=== PATIENT | female | born 1945 | race Caucasian/White ===

== ENCOUNTER 2016-06-01 11:39 | Emergency (ER) | payer OTHER ==
[~2016-06-01] VITALS: Ht 154.9 cm; Wt 68.9 kg
[~2016-06-01 11:39] MED LIST: VAS10 PO
[2016-06-01 11:49] VITALS: BP 148/78
--- NOTE | 2016-06-01 13:10 | NUR ---
Patient to bed 08.
--- NOTE | 2016-06-01 13:12 | NUR ---
Dr. Leone evaluating patient at bedside.
--- NOTE | 2016-06-01 13:12 | NUR ---
71/F BIB TO ED C/O COUGH X5 DAYS WITH CHEST PAIN AND CONGESTION.
[2016-06-01] MEDS ORDERED: ACETAMIN/CODEINE 120/12MG-5ML 5 ML UDC PO ONE (13:25)
--- NOTE | 2016-06-01 13:45 | NUR ---
XR NEGATIVE. MED GIVEN PER APR. PT SOUMYA WELL. SWABBED NOSTRILS FOR FLU TEST.
[2016-06-01 15:04] VITALS: BP 144/80
--- NOTE | 2016-06-01 15:04 | NUR ---
Patient discharged with v/s stable. Written and verbal after care instructions given and explained. Patient verbalized understanding. Ambulatory with steady gait. All questions addressed prior to discharge. Advised to follow up with PMD.
== END 2016-06-01 15:04 | disposition home or self-care (01) ==
LOC: MED 11:39
DX: B34.9 Viral infection, unspecified (principal); J02.8 Acute pharyngitis due to other specified organisms; B97.89 Other viral agents as the cause of diseases classified elsewhere; E11.9 Type 2 diabetes mellitus without complications; I10 Essential (primary) hypertension
CPT/HCPCS: 36415; 71010; 87804; 99284

== ENCOUNTER 2016-07-07 17:03 | Inpatient (IN) | payer OTHER ==
[~2016-07-07] VITALS: Ht 157.5 cm; Wt 68.9 kg
[~2016-07-07 17:03] MED LIST changes: +CIPRO500 MG PO; -VAS10 PO; +VASOTEC10 MG PO
[2016-07-07 17:09] VITALS: BP 143/68
--- NOTE | 2016-07-07 17:21 | NUR ---
Patient ambulated to bed 05.
[2016-07-07] MEDS ORDERED: ONDANSETRON 4 MG/2 ML VIAL IVP ONE (17:25)
[2016-07-07] MEDS ORDERED: HYDROmorphone 1 MG/ML AMP IVP ONE (17:25)
[2016-07-07] MEDS ORDERED: NACL 0.9% 500 ML IV ONE (17:25)
--- NOTE | 2016-07-07 17:27 | NUR ---
Dr. Leone evaluating patient at bedside.
--- NOTE | 2016-07-07 17:55 | NUR ---
PT STATES EPIGASTRIC PAIN FOR 2 TWO DAYS . DENIES V/D; SKIN IS PINK/WARM/DRY; AAOX4 WITH EVEN AND STEADY GAIT; LUNGS CLEAR BL; HR EVEN AND REGULAR; PT DENIES ANY FEVER, CP, SOB, OR COUGH AT THIS TIME; PATIENT STATES PAIN OF 5/10 AT THIS TIME; VSS; PATIENT POSITIONED FOR COMFORT; HOB ELEVATED; BEDRAILS UP X2; BED DOWN. ER MD MADE AWARE OF PT STATUS.PT'S TWO DAUGHTERS AT BEDSIDE.
--- NOTE | 2016-07-07 18:39 | NUR ---
Patient going to CT via wheelchair per tech.
[2016-07-07] MEDS ORDERED: cefTRIAXone 1,000 MG VIAL ONE (19:17)
--- NOTE | 2016-07-07 19:25 | NUR ---
REPORT GIVEN TO DOROTA Morales FOR CONTINUTY OF CARE.
[2016-07-07] MEDS ORDERED: INSULIN LISPRO SLIDING SCALE 100 UNITS/ML VIAL SUBQ PRN (20:05)
[2016-07-07] MEDS ORDERED: MORPHINE SULFATE 2 MG/ML SYR IVP PRN (20:05)
[2016-07-07] MEDS ORDERED: ONDANSETRON 4 MG/2 ML VIAL IVP PRN (20:05)
[2016-07-07] MEDS ORDERED: ACETAMINOPHEN 325 MG TAB PO PRN (20:05)
[2016-07-07] MEDS ORDERED: ASPIRIN 81 MG TAB.CHEW PO ONE (20:05)
[2016-07-07] MEDS ORDERED: NACL 0.9% 1,000 ML IV ONE (20:10)
[2016-07-07] MEDS ORDERED: PROTONIX40 MG PO (21:22)
[2016-07-07] MEDS ORDERED: METFORMIN HCL500 MG PO (21:22)
[2016-07-07] MEDS ORDERED: ORETIC25 MG PO (21:22)
[2016-07-07] MEDS ORDERED: OXYBUTYNIN CHLOR5 M1 PO (21:22)
--- NOTE | 2016-07-07 21:22 | NUR ---
Patient will be admitted to care of DR ANDRADE. Admited to TELE . Will go to room 115. Belongings list completed. Report to TAHMINA RAYA.
--- NOTE | 2016-07-07 21:40 | NUR ---
PATIENT WAS ADMITTED TO THE UNIT FROM ED, PATIENT ARRIVED VIA GURNEY, ABLE TO AMBULATE TO BED WITH NO ASSISTANCE. PATIENT IS AAOX4 ON ROOM AIR NO SOB OR SIGN OF DISTRESS AT THIS TIME, PATIENT CONNECTED TO TELE, SKIN CHECK INTACT, IV TO RAC PATENT AND INTACT. PATIENT DENIES PAIN AT THIS TIME. DISCUSSED PLAN OF CARE WITH PATIENT, PATIENT VERBALIZED UNDERSTANDING, ORIENTED PATIENT TO ROOM AND CALL LIGHT. CALL LIGHT WITHIN REACH. SAFETY MEASURES CHECKED, WILL CONTINUE TO MONITOR. VITAL SIGNS STABLE.
[2016-07-07] MEDS: BLOOD GLUCOSE MONITORING 1 DEV DEV FS SCH (21:52)
[2016-07-07] MEDS ORDERED: PNEUMOCOCCAL VACCINE 23 MCG/0.5 ML VIAL IMVAC PRN (22:35)
[2016-07-08] VITALS: BP 101/52
--- NOTE | 2016-07-08 00:22 | NUR ---
VITAL SIGNS STABLE, NO SOB OR SIGN OF DISTRESS AT THIS TIME, CALL LIGHT WITHIN REACH. WILL CONTINUE TO MONITOR
--- NOTE | 2016-07-08 02:40 | NUR ---
IV IN RIGHT AC INFILTRATED, STARTED NEW IV TO LEFT HAND 22G PATENT AND INTACT, PATIENT TOLERATED WELL. CALL LIGHT WITHIN REACH. WILL CONTINUE TO MONITOR.
[2016-07-08 04:00] VITALS: BP 115/64
--- NOTE | 2016-07-08 04:12 | NUR ---
VITAL SIGNS STABLE, NO SOB OR SIGN OF DISTRESS AT THIS TIME, CALL LIGHT WITHIN REACH. WILL CONTINUE TO MONITOR.
[2016-07-08] MEDS: BLOOD GLUCOSE MONITORING 1 DEV DEV FS SCH ×2 (06:42→12:18)
--- NOTE | 2016-07-08 07:21 | NUR ---
RECEIVED REPORT FROM NIGHT NURSE. PT IS AAOX4 MACEDONIAN SPEAKING, ON ROOM AIR, IV TO LEFT AC INFUSING WELL , SKIN INTACT Addendum: 07/08/16 at 0752 by Ana Maria Quintero RN PT SATES NO CHEST PAIN OR SOB AT THIS TIME.INITIAL ASSESSMENT COMPLETED. REVIEWED PLAN OF CARE WITH PT, PT VERBALIZED UNDERSTANDING. ALL SAFETY PRECAUTION MET. CALL LIGHT WITHIN REACH. WILL CONTINUE TO MONITOR.
--- NOTE | 2016-07-08 07:21 | NUR ---
ENDORSED PATIENT TO DAY RN AT BEDSIDE, PATIENT IN STABLE CONDITION
[2016-07-08 08:00] VITALS: BP 116/72
[2016-07-08] MEDS ORDERED: ENOXAPARIN 30 MG/0.3 ML SYR SUBQ SCH (09:00)
[2016-07-08] MEDS ORDERED: ASPIRIN 81 MG TAB.CHEW PO SCH (09:00)
--- NOTE | 2016-07-08 09:46 | NUR ---
DUE MEDICATIONS GIVEN, AT BEDSIDE, ALL NEEDS MET. CALL LIGHT WITHIN REACH. WILL CONTINUE TO MONITOR.
[2016-07-08] MEDS ORDERED: LEVAQUIN500 M1 PO (10:52)
--- NOTE | 2016-07-08 11:45 | NUR ---
PT CURRENTLY VISITING WITH FAMILY MEMBERS. ALL NEEDS MET. CALL LIGHT WITHIN REACH. WILL CONTINUE TO MONITOR.
[2016-07-08 12:00] VITALS: BP 114/71
--- NOTE | 2016-07-08 14:00 | NUR ---
PT SIGNED ALL DISCHARGE PAPERWORK, FOLLOW UP INFORMATION GIVEN , PRESCRIPTION AND EDUCATION GIVEN. PT VERBALIZED UNDERSTANDING. IV REMOVED TIP INTACT. IN TO CLINICAL SUPERVISOR PY.
--- NOTE | 2016-07-08 14:15 | NUR ---
PT WAS WALKED OUT TO FRONT LOBBY IN STABLE CONDITION.
--- NOTE | 2016-07-10 08:06 | NUR ---
RETRO ER REPORT, H&P AND DISCHARGE SUMMARY FAXED TO [facility] [phone] PHONE MARIO [phone]
== END 2016-07-08 14:05 | disposition home or self-care (01) | DRG 422 ==
LOC: MED 17:03 → MTU 20:08
PROVIDERS: ADMIT Hospitalist; ATTEND Hospitalist
DX: E87.1 Hypo-osmolality and hyponatremia (principal); E86.0 Dehydration; N39.0 Urinary tract infection, site not specified; I15.2 Hypertension secondary to endocrine disorders; I10 Essential (primary) hypertension; E78.00 Pure hypercholesterolemia, unspecified; E11.9 Type 2 diabetes mellitus without complications; J45.909 Unspecified asthma, uncomplicated

== ENCOUNTER 2017-10-23 21:46 | Emergency (ER) | payer OTHER ==
[~2017-10-23] VITALS: Ht 157.5 cm; Wt 65.8 kg
[~2017-10-23 21:46] MED LIST changes: -CIPRO500 MG PO; +LEVO500T2 PO; +METF500T6 PO; +OXYB5TAB PO; +PANT40EC PO; +VAS10 PO; -VASOTEC10 MG PO
[2017-10-23 22:06] VITALS: BP 135/88
--- NOTE | 2017-10-23 22:10 | NUR ---
72 Y/O F PRESENTS TO THE ED W/C/O PT FELL AT HOME INJURING RIGHT 5TH TOE. REDNESS AND EDEMA PRESENT. NO OPEN AREAS. 8/10 PAIN. PT DENIES N/V/D; SKIN IS INTACT, PINK/WARM/DRY; AAOX4, PERRL, WITH EVEN AND STEADY GAIT; LUNGS CLEAR BL, BREATHING UNLABORED; HR EVEN AND REGULAR, BL PERIPHERAL PULSES PRESENT; BS ACTIVE X4, NO TENDERNESS TO PALPATION, NO HEPATOSPLENOMEGALLY PALPATED, RESONANT TO PERCUSSION; PT DENIES ANY FEVER, CP, SOB, OR COUGH AT THIS TIME; PT STATES 8/10 PAIN AT THIS TIME; VSS; PATIENT POSITIONED FOR COMFORT; HOB ELEVATED; BEDRAILS UP X2; BED DOWN.
--- NOTE | 2017-10-23 22:11 | NUR ---
PT AMBULATED TO BED #4 WITH VSS. ACCOMPANIED BY DAUGHTER.
--- NOTE | 2017-10-23 22:34 | NUR ---
Dr. Porter evaluating patient at bedside.
--- NOTE | 2017-10-23 23:03 | NUR ---
is technician at bedside.
--- NOTE | 2017-10-23 23:30 | NUR ---
PT RESTING COMFORTABLY IN BED. NO S/S OF DISTRESS NOTED
[2017-10-24 00:25] VITALS: BP 136/77
== END 2017-10-24 00:25 | disposition home or self-care (01) ==
LOC: MED 21:46
DX: S90.121A Contusion of right lesser toe(s) without damage to nail, initial encounter (principal); E11.9 Type 2 diabetes mellitus without complications; I10 Essential (primary) hypertension; Z88.8 Allergy status to other drugs, medicaments and biological substances; W18.39XA Other fall on same level, initial encounter; Y93.89 Activity, other specified; Y92.89 Other specified places as the place of occurrence of the external cause; Y99.8 Other external cause status
CPT/HCPCS: 73660; 99284; Q0092

== ENCOUNTER 2018-07-05 22:14 | Inpatient (IN) | payer OTHER ==
[~2018-07-05] VITALS: Ht 165.1 cm; Wt 65.8 kg
[~2018-07-05 22:14] MED LIST changes: +ENAL-197 PO; +METF-988 PO; -METF500T6 PO; -VAS10 PO
[2018-07-05 22:20] VITALS: BP 125/83
--- NOTE | 2018-07-05 22:30 | NUR ---
73 YO F BIB SON PRESENTS TO ED C/O CHEST PAIN. PT REPORTS 7/10 SHARP PAIN TO THE STERNAL REGION THAT RADIATES FROM HER THROAT. PT ALSO REPORTS INCREASE IN PAIN WHILE COUGHING AND DEEP BREATHING AND CAN "HEAR A WHISTLE" DURING INSPIRATION. PT DENIES SOB, N/V, LIGHT HEADEDNESS OR DIZZINESS. PT HAS HAD A DRY, PRODUCTIVE COUGH WITH YELLOW SPUTUM X 3 DAYS. -- PT IS AWAKE, ALERT, COOPERATIVE, BEHAVIOR APPROPRIATE. -- SKIN PINK, DRY, WARM. NO DIAPHORESIS NOTED. -- INSPIRATORY WHEEZING AUSCULTATED THROUGHOUT LUNG DOTY. SPO2: 94%. -- VSS. NO DISTRESS NOTED AT THIS TIME. PMH-- HTN, DM, HYPERLIPIDEMIA
--- NOTE | 2018-07-05 22:48 | NUR ---
DR. WALTERS EVALUATING PT BEDSIDE
--- NOTE | 2018-07-05 23:00 | NUR ---
PT PLACED ON FI02 AT 2 LPM VIA NC FOR SP02 <94% (92% ON RA.) NEW SP02 97% ON 2 LPM.
[2018-07-05] MEDS ORDERED: LEVOFLOXACIN 750 MG/D5W PREMIX 150 ML IV ONE (23:05)
[2018-07-05] MEDS ORDERED: MAG SULF 2000 MG/WATER PREMIX 50 ML IV ONE (23:05)
[2018-07-05] MEDS ORDERED: IPRATROPIUM 0.02% 0.5 MG/2.5 ML NEBU INH ONE (23:05)
[2018-07-05] MEDS ORDERED: methylPREDNISolone SS 125 MG in WATER STERILE 2 ML IV ONE ×4 (23:05)
[2018-07-05] MEDS ORDERED: AZITHROMYCIN 500 MG in DEXTROSE 5% 250 ML IV ONE (23:10)
--- NOTE | 2018-07-05 23:11 | NUR ---
LAB AT BEDSIDE.
--- NOTE | 2018-07-05 23:23 | NUR ---
XRAY AT BEDSIDE.
[2018-07-05] MEDS ORDERED: AZITHROMYCIN 500 MG INJ VIAL IV ONE (23:24)
--- NOTE | 2018-07-05 23:30 | NUR ---
RT AT BEDSIDE. BREATHING TX IN PROGRESS.
[2018-07-05 23:48] LABS: BASOPHILS % (AUTO) 0.9 % (0.0-2.0); EOSINOPHILS # (AUTO) 0.1 K/uL (0-0.4); EOSINOPHILS % (AUTO) 2.4 % (0.0-4.0); HEMATOCRIT 40.7 % (36-48); HEMOGLOBIN 13.8 g/dL (12.0-16.0); LYMPHOCYTES # (AUTO) 1.7 K/uL (2.5-16.5); MEAN CORPUSCULAR HEMOGLOBIN 31 pg (27-31); MEAN CORPUSCULAR HGB CONC 34 g/dL (33-37); MEAN CORPUSCULAR VOLUME 90.5 fL (80-94); MONOCYTES # (AUTO) 0.8 K/uL (0.8-1.0); NEUTROPHILS # (AUTO) 2.4 K/uL (1.8-7.7); NEUTROPHILS % (AUTO) 47.6 % (42.2-75.2); PLATELET COUNT (AUTO) 304 K/uL (140-450); RED CELL DISTRIBUTION WIDTH 12.9 % (11.6-13.7); WHITE BLOOD COUNT (AUTO) 5.1 K/uL (4.8-10.8)
[2018-07-05] MEDS ORDERED: ORE25 PO (23:58)
[2018-07-05] MEDS ORDERED: SIMV40TA1 PO (23:58)
[2018-07-05] MEDS ORDERED: LOSA50TA66 PO (23:58)
--- NOTE | 2018-07-06 | NUR ---
PT REPORTS BREATHING TX AND MEDICATIONS IMPROVED DISCOMFORT WHILE BREATHING, 4/10. LUNG SOUNDS IMPROVED. CLEAR TO AUSCULTATION.
[2018-07-06 00:03] LABS: ANION GAP 10.5 (8-16); CHLORIDE 92 mmol/L (98-107); CREATININE 0.9 mg/dL (0.6-1.3); GLUCOSE 126 mg/dL (74-106); POTASSIUM 3.5 mmol/L (3.5-5.1); SODIUM SERUM 128 mmol/L (136-145); UREA NITROGEN, BLOOD 13 mg/dL (7-18)
[2018-07-06 00:09] LABS: ALBUMIN 3.2 g/dL (3.4-5.0); ASPARTATE AMINOTRANSFERASE 20 U/L (15-37); MONOCYTES % (AUTO) 16.1 % (1.7-9.3); TOTAL BILIRUBIN 0.3 mg/dL (0.0-1.0)
[2018-07-06 00:29] LABS: APPEARANCE,URINE HAZY (CLEAR); BILIRUBIN,URINE NEGATIVE (NEGATIVE); BLOOD, URINE TRACE-I (NEGATIVE); COLOR,URINE YELLOW (YELLOW); LEUKOCYTE ESTERASE ,URINE TRACE (NEGATIVE); NITRITE, URINE POSITIVE (NEGATIVE); UGLUCOSE NEGATIVE (NEGATIVE)
[2018-07-06 00:47] LABS: RBC,URINE 0-5 /HPF (0-5); WBC,URINE 0-5 /HPF (0-5)
[2018-07-06 01:00] VITALS: BP 130/73
--- NOTE | 2018-07-06 01:00 | NUR ---
RECEIVED BEDSIDE REPORT FROM FELICITAS RAYA. PATIENT SLEEPING RESPIRATION EVEN UNLABORED ON ROOM AIR. NO DISTRESS NOTED. WILL CONTINUE TO MONITOR. Addendum: 07/06/18 at 0436 by Yumiko Jolly RN WRONG ENTRY
--- NOTE | 2018-07-06 01:00 | NUR ---
RECEIVED REPORT FROM ED NURSE. PATIENT AWAKE, ALERT, AND COOPERATIVE. BAHRAINI SPEAKER. RESPIRATION EVEN UNLABORED ON 2L NC. NO DISTRESS NOTED. SKIN IS WARM AND DRY. IV PATENT AND INTACT. SON IS AT THE BEDSIDE AND PROVIDED PMH OF THE PATIENT. BOWEL SOUNDS PRESENT IN ALL QUADRANT. LAST BM 07/05/18. PATIENT IS AMBULATORY. PATIENT IS ON CONTACT PRECAUTION DUE TO HX MDRO URINE. PLAN OF CARE WAS DISCUSSED. ALL SAFETY MEASURES IN PLACE. BED IS AT LOW POSITION. CALL LIGHT WITHIN REACH. WILL CONTINUE TO MONITOR.
--- NOTE | 2018-07-06 01:09 | NUR ---
Patient will be admitted to care of Dr. Lange. Admited to TELE. Will go to room 123B. Belongings list completed. Report to DOROTA Calderon.
[2018-07-06] MEDS ORDERED: ACETAMINOPHEN 325 MG TAB PO PRN (02:00)
[2018-07-06] MEDS ORDERED: ONDANSETRON 4 MG/2 ML VIAL IVP PRN (02:00)
[2018-07-06] MEDS ORDERED: KETOROLAC 30 MG/ML VIAL IVP PRN (02:00)
--- NOTE | 2018-07-06 03:35 | NUR ---
RECEIVED PATIENT ON 2L NASAL CANNULA. REMOVED NASAL CANNULA- PATIENT PULSE OX SAT 93% ON ROOM AIR. NO DISTRESS NOTED. WILL CONTINUE TO MONITOR.
--- NOTE | 2018-07-06 03:50 | NUR ---
PAGE DR. LUCERO REGARDING PATIENT NA 128. AWAITING FOR CALL
[2018-07-06 04:00] VITALS: BP 132/72
--- NOTE | 2018-07-06 04:00 | NUR ---
VITALS WERE TAKE. PATIENT CONDITION STABLE. SATING 93% ON ROOM AIR. NO DISTRESS NOTED. WILL CONTINUE TO MONITOR
--- NOTE | 2018-07-06 04:00 | NUR ---
VITALS WERE TAKEN. PATIENT BP 193/94 HR 90 PRN CATAPRES GIVEN PER ORDER. WILL CONTINUE TO MONITOR Addendum: 07/06/18 at 0436 by Yumiko Jolly RN WRONG ENTRY
[2018-07-06] MEDS ORDERED: ALBUTEROL SULFATE/IPRATROPIU 3 ML SOL IH PRN (04:30)
--- NOTE | 2018-07-06 04:30 | NUR ---
PAGED DR. LUCERO AGAIN. AWAITING FOR CALL
--- NOTE | 2018-07-06 05:00 | NUR ---
PATIENT SLEEPING RESPIRATION EVEN UNLABORED ON ROOM AIR. NO DISTRESS NOTED. WILL CONTINUE TO MONITOR
[2018-07-06] MEDS: methylPREDNISolone SS 125 MG/2 ML VIAL IVP SCH ×3 (05:16→20:40)
--- NOTE | 2018-07-06 07:20 | NUR ---
ENDORSED PATIENT TO DAY SHIFT NURSE. PATIENT CONDITION STABLE.
[2018-07-06] MEDS: ALBUTEROL SULFATE/IPRATROPIU 3 ML SOL IH SCH ×3 (07:22→20:27)
--- NOTE | 2018-07-06 07:25 | NUR ---
RECEIVED PT FROM SENIOR MERCHANDISER NURSESANTOS, PT IS ASLEEP AND LYING ON THE BED WITH CALL LIGHT WITHIN REACH AND BED IN LOW POSITION, PT IS ON CONTACT ISOLATION FOR MDRO OF URINE, PT HAS PERIPHERAL LINES ON THE RT AND LEFT HAND G. 22 BOTH ON SALINE LOCKS, INTACT. NO SIGN OF DISTRESS NOTED AND WILL MONITOR PT.
[2018-07-06 08:00] VITALS: BP 129/72
[2018-07-06] MEDS ORDERED: metFORMIN 500 MG TAB PO SCH (08:39)
[2018-07-06] MEDS ORDERED: PANTOPRAZOLE 40 MG TABEC PO SCH (08:40)
[2018-07-06] MEDS: LOSARTAN 50 MG TAB PO SCH (10:03)
--- NOTE | 2018-07-06 10:03 | NUR ---
PT IS AWAKE AND SEATED ON THE BED WITH DAUGHTER AND GRANDSON ON THE BEDSIDE, VITAL SIGNS CHECK DONE AND RESULT IS BP IS 143/80, PULSE IS 100, O2 SATURATION IS 93% AND RESPIRATION IS 18/MIN. MEDICATIONS WERE GIVEN AND PT TOLERATED IT. NO SIGN OF DISTRESS NOTED AND WILL MONITOR PT.
[2018-07-06] MEDS ORDERED: LEVOFLOXACIN 500 MG/D5W PREMIX 100 ML IV SCH (11:00)
[2018-07-06 12:00] VITALS: BP 140/68
--- NOTE | 2018-07-06 12:58 | NUR ---
PT IS AWAKE AND SEATED ON THE BED WITH DAUGHTER ON THE BEDSDIE, IV MEDICATION WAS GIVEN AND PT TOLERATED IT. FAMILY WAS ADVISED TO PUT ON GOWN AND GLOVES SINCE PT IS ON CONTACT ISOLATTION AND FAMILY VERBALIZED UNDERSTANDING. WILL MONITOR PT.
[2018-07-06 16:00] VITALS: BP 122/64
[2018-07-06] MEDS: metFORMIN 500 MG TAB PO SCH (17:30)
--- NOTE | 2018-07-06 17:30 | NUR ---
PT IS AWAKE AND SEATED ON THE BED, WATCHING TV, ORAL MEDICATION WAS GIVEN AND PT TOLERATED IT. WILL MONITOR PT.
--- NOTE | 2018-07-06 19:25 | NUR ---
ENDORSED PT TO REGULATOR OPERATOR NURSEMAXINE FOR CONTINUITY OF CARE, PT IS STABLE AT THIS TIME.
--- NOTE | 2018-07-06 19:30 | NUR ---
RECEIVED FROM AM RN IN BED SITTING UP AND WATCHING TV. MARSHALLESE SPEAKING. CALL LIGHT WITH IN REACH AND CARE PLANS FOR THE NIGHT DISCUSSED WITH HER WHILE REPORT WAS ENDORSED IN ROOM WITH MARSHALLESE SPEAKING AM RN. NO RESTLESSNESS NOTED. DX. OF COPD EXACERBATION . 02 SAT ROOM AIR AT THIS TIME IS 98 %. NO DOLOR COMPLAINTS. TELEMETRY MONITORING.
[2018-07-06 19:50] VITALS: BP 115/53
--- NOTE | 2018-07-06 20:46 | NUR ---
BREATHING TREATMENT ON GOING AT THIS TIME. P.O. MEDICATION ADMINISTERED AND SOLU MEROL IVP ADMINISTERED. GAVE NEW SPUTUM CUP FOR REPEAT "TUSS" RT OLD TUSS NO RAMIREZ. PT. UNDERSTOOD WELL AND ANSWERED "SI" PT. DENIES DOLOR AND WATCHING TV. TALKING TO SOMEONE ON THE PHONE. CALL LIGHT WITH IN REACH. ABLE TO ANSWER YES AND NO IN COOK ISLANDER. COUGHING INTERMITTENTLY STILL. NON PRODUCTIVE AT THIS TIME.
[2018-07-06] MEDS ORDERED: SIMVASTATIN 40 MG TAB PO SCH (21:00)
--- NOTE | 2018-07-06 23:21 | NUR ---
PT. C/O HEADACHE AT THIS TIME. MEDICATED WITH TYLENOL P.O. ORDERED. NO FURHTER COMPLAINTS.
[2018-07-07 00:09] VITALS: BP 115/65
--- NOTE | 2018-07-07 00:11 | NUR ---
SLEEPING AT THIS TIME. WOKE UP EASILY WHEN VITAL SIGNS TAKEN. COUGHING INTERMITTENTLY. SPUTUM REPEAT COLLECTED SENT TO LAB. ABLE TO VERBALIZE NEEDS WELL.
[2018-07-07] MEDS ORDERED: LEVOFLOXACIN 500 MG/D5W PREMIX 100 ML IV SCH (01:00)
--- NOTE | 2018-07-07 02:00 | NUR ---
SLEEPING. NO RESTLESSNESS. CALL LIGHT WITH IN REACH.
[2018-07-07 04:32] VITALS: BP 120/68
[2018-07-07] MEDS: methylPREDNISolone SS 125 MG/2 ML VIAL IVP SCH ×2 (05:23→12:11)
--- NOTE | 2018-07-07 05:49 | NUR ---
PATIENT HAS BEEN SCREENED AND CATEGORIZED LOW NUTRITION RISK. PATIENT WILL BE SEEN WITHIN 7 DAYS OF ADMISSION. 07/12/17 JACQUELYN LAMA MS, RDN
--- NOTE | 2018-07-07 05:53 | NUR ---
AM PERSONAL HYGIENE RENDERED BY CNAS. ABLE TO VERBALIZE NEEDS WELL. NO COMPLAINTS DONE. SLEPT WELL THIS SHIFT. WILL ENDORSE TO AM RN FOR CONTINUITY OF CARE.
[2018-07-07] MEDS ORDERED: PANTOPRAZOLE 40 MG TABEC PO SCH (06:30)
[2018-07-07] MEDS: ALBUTEROL SULFATE/IPRATROPIU 3 ML SOL IH SCH ×2 (07:00→14:07)
--- NOTE | 2018-07-07 07:30 | NUR ---
RECEIVED PT FROM JOWL TRIMMER NURSE, MAXINE, PT IS AWAKE AND LYING ON THE BED WITH SIDE RAILS UP AND CALL LIGHT WITHIN REACH, PT HAS IV LINES ON THE LEFT AND RIGHT HAND G. 22 ON SALINE LOCKS. PT DENEIS PAIN AND NO SIGN OF DISTRESS NOTED. WILL MONITOR PT.
[2018-07-07 07:45] LABS: HEMATOCRIT 37.1 % (36-48); HEMOGLOBIN 12.5 g/dL (12.0-16.0); MEAN CORPUSCULAR HEMOGLOBIN 31 pg (27-31); MEAN CORPUSCULAR HGB CONC 34 g/dL (33-37); MEAN CORPUSCULAR VOLUME 90.7 fL (80-94); PLATELET COUNT (AUTO) 328 K/uL (140-450); RED BLOOD CELL COUNT(AUTO) 4.09 MIL/uL (4.20-5.40); RED CELL DISTRIBUTION WIDTH 13.4 % (11.6-13.7); WHITE BLOOD COUNT (AUTO) 11.5 K/uL (4.8-10.8)
[2018-07-07 07:51] LABS: ANION GAP 16.6 (8-16); CARBON DIOXIDE 24.2 mmol/L (21-32); CHLORIDE 90 mmol/L (98-107); GLUCOSE 176 mg/dL (74-106); POTASSIUM 3.8 mmol/L (3.5-5.1); SODIUM SERUM 127 mmol/L (136-145); UREA NITROGEN, BLOOD 19 mg/dL (7-18)
[2018-07-07 08:00] VITALS: BP 133/60
--- NOTE | 2018-07-07 08:00 | NUR ---
PT IS AWAKE AND VITAL SIGNS CHECKED AND RESULT, BP IS 133/60, PULSE IS 82, O2 SATURATION IS 94%, TEMEPERATURE IS 98.4 AND RESPIRATION IS 16/MIN, NO SIGN OF DISTRESS NOTED AND WILL MONITOR PT.
[2018-07-07 08:06] LABS: MAGNESIUM 1.8 mg/dL (1.8-2.4); PHOSPHORUS 3.5 mg/dL (2.5-4.9)
[2018-07-07 08:48] LABS: BASOPHILS % (MANUAL) 0 % (0-2); EOSINOPHILS % (MANUAL) 0 % (0-4); LYMPHOCYTES % (MANUAL) 11 % (20-46); MONOCYTES % (MANUAL) 5 % (5-12)
[2018-07-07] MEDS: LOSARTAN 50 MG TAB PO SCH (08:54)
[2018-07-07] MEDS: metFORMIN 500 MG TAB PO SCH ×2 (08:54→17:00)
--- NOTE | 2018-07-07 11:00 | NUR ---
PT IS AWAKE AND TALKING TO FAMILY ON THE BEDSIDE, NO SIGN OF DISTRESS NOTED AND DENEIS PAIN AT THIS TIME.
[2018-07-07 12:00] VITALS: BP 118/67
--- NOTE | 2018-07-07 12:15 | NUR ---
PT IS AWAKE AND FAMILY ON THE BEDSIDE, IV MEDICATION WAS GIVEN TO PT AND PT TOLERATED IT. NO SIGN OF DISTRESS NOTED AND WILL MONITOR PT.
--- NOTE | 2018-07-07 14:08 | NUR ---
PT IS HAVING BREATHING TREATMENT NOW.
[2018-07-07 16:00] VITALS: BP 128/61
--- NOTE | 2018-07-07 17:10 | NUR ---
DISCHARGED PT VIA WHEELCHAIR WITH THE SON, INSTRUCTIONS AND TEACHINGS WERE GIVEN AND PT VERBALIZED UNDERSTANDING. IV LINE AND ARM BAND REMOVED, VITAL SIGNS CHECKED AND BP IS 128/69, PULSE IS 78, O2 SATURATION IS 96% AND TEMPERATURE IS 98.3. PT IS STABLE AT THIS TIME.
--- NOTE | 2018-07-08 15:36 | NUR ---
CALLED DR SHELBI GUZMAN'S OFFICE AND MADE APPOINTMENT FOR Sunday07/11/18 AT 1030AM . CALLED PT'S CELL PHONE [phone] AND LEFT A MESSAGE.
== END 2018-07-07 17:10 | disposition home or self-care (01) | DRG 133 ==
LOC: MED 22:14 → MTU 07-06 00:13
PROVIDERS: ADMIT Internal Medicine Pulmonary Disease; ATTEND Internal Medicine Pulmonary Disease
DX: J96.01 Acute respiratory failure with hypoxia (principal); J44.0 Chronic obstructive pulmonary disease with (acute) lower respiratory infection; J44.1 Chronic obstructive pulmonary disease with (acute) exacerbation; J45.901 Unspecified asthma with (acute) exacerbation; E11.9 Type 2 diabetes mellitus without complications; E87.1 Hypo-osmolality and hyponatremia; J20.9 Acute bronchitis, unspecified; I10 Essential (primary) hypertension; E78.5 Hyperlipidemia, unspecified; K21.9 Gastro-esophageal reflux disease without esophagitis; T50.2X5A Adverse effect of carbonic-anhydrase inhibitors, benzothiadiazides and other diuretics, initial encounter; Z79.899 Other long term (current) drug therapy; Z79.84 Long term (current) use of oral hypoglycemic drugs; Y92.89 Other specified places as the place of occurrence of the external cause
CPT/HCPCS: 36415; 71045; 80048; 80053; 81001; 83735; 83930; 83935; 84100; 84300; 85025; 87081; 87086; 87205; 87804; 94640; 99285; J0456; J1956; J2930; J3475; J7030; J7620; J7644; Q0092

== ENCOUNTER 2018-10-01 19:29 | Emergency (ER) | payer OTHER ==
[~2018-10-01] VITALS: Ht 154.9 cm; Wt 67.1 kg
[~2018-10-01 19:29] MED LIST changes: -ENAL-197 PO; -LEVO500T2 PO; +LOSA50TA66 PO; -OXYB5TAB PO; +SIMV40TA1 PO
[2018-10-01 19:40] VITALS: BP 150/72
--- NOTE | 2018-10-01 19:43 | NUR ---
TO LOBBY A/W BED AMBULATORY
--- NOTE | 2018-10-01 20:45 | NUR ---
PT AMBULATED TO BED #12
--- NOTE | 2018-10-01 20:50 | NUR ---
PT CAME IN TO ER WITH C/O RT FLANK PAIN THAT IS RADIATING TO HER LOWER BACK, AND LEG X 5 DAYS. PT WAS SEEN BY PMD LAST SUNDAY AND WAS GIVEN PRESCRIPTION OF CIPRO. PT FEELS SHE HAS HAD NO RELIEF. PT HAS PAIN OF 7/10 AT THIS TIME. PT IS A/OX4. ER MD MADE AWARE OF STATUS. SAFETY MEASURES IN PLACE. CONTINUE TO MONITOR.
[2018-10-01 22:20] VITALS: BP 150/72
--- NOTE | 2018-10-01 22:20 | NUR ---
Patient discharged with v/s stable. Written and verbal after care instructions given and explained. Patient alert, oriented and verbalized understanding of instructions. Ambulatory with steady gait. All questions addressed prior to discharge. ID band removed. Patient advised to follow up with PMD. Rx of MACROBID WAS given. Patient educated on indication of medication including possible reaction and side effects. Opportunity to ask questions provided and answered.
[2018-10-01 22:47] LABS: BILIRUBIN,URINE NEGATIVE (NEGATIVE); BLOOD, URINE TRACE-I (NEGATIVE); LEUKOCYTE ESTERASE ,URINE 1+ (NEGATIVE); NITRITE, URINE NEGATIVE (NEGATIVE); PH,URINE 5.5 (5.0-9.0); UGLUCOSE NEGATIVE (NEGATIVE)
[2018-10-01 22:56] LABS: APPEARANCE,URINE HAZY (CLEAR); COLOR,URINE YELLOW (YELLOW)
[2018-10-01 23:15] LABS: RBC,URINE NONE SEEN /HPF (0-5)
== END 2018-10-01 22:20 | disposition home or self-care (01) ==
LOC: MED 19:29
DX: N39.0 Urinary tract infection, site not specified (principal); E11.9 Type 2 diabetes mellitus without complications; I10 Essential (primary) hypertension; Z79.84 Long term (current) use of oral hypoglycemic drugs; Z79.899 Other long term (current) drug therapy
CPT/HCPCS: 81001; 87086; 87186; 99283

== ENCOUNTER 2018-12-24 02:18 | Emergency (ER) | payer OTHER ==
[~2018-12-24] VITALS: Ht 152.4 cm; Wt 63.5 kg
[~2018-12-24 02:18] MED LIST changes: +MER1I IV
[2018-12-24 02:25] VITALS: BP 134/73
--- NOTE | 2018-12-24 02:25 | NUR ---
PT AMBULATED TO BED 11
--- NOTE | 2018-12-24 02:30 | NUR ---
PATIENT PRESENTS TO ED WITH PT C/O ABDOMINAL PAIN, PT STATES PAIN HAS BEEN GOING ON FOR FEW DAY. PT ALSO C/O OBANDO. PT ALSO C/O BURING AND FREQUENCY WHEN URINATING. VSS. NKA MEDICAL HX: DM, HTN . . DENIES N/V/D; SKIN IS PINK/WARM/DRY; AAOX4 WITH EVEN AND STEADY GAIT; LUNGS CLEAR BL; HR EVEN AND REGULAR; PT DENIES ANY FEVER, CP, SOB, OR COUGH AT THIS TIME; PATIENT STATES PAIN OF 5/10 AT THIS TIME; VSS; PATIENT POSITIONED FOR COMFORT; HOB ELEVATED; BEDRAILS UP X2; BED DOWN. ER MD MADE AWARE OF PT STATUS.
[2018-12-24] MEDS ORDERED: KETOROLAC 30 MG/ML VIAL IVP ONE (02:40)
[2018-12-24] MEDS ORDERED: NACL 0.9% 1,000 ML IV ONE (02:40)
[2018-12-24] MEDS ORDERED: cefTRIAXone 1,000 MG VIAL ONE (02:53)
[2018-12-24 03:02] LABS: BASOPHILS % (AUTO) 0.4 % (0.0-2.0); EOSINOPHILS # (AUTO) 0.1 K/uL (0-0.4); EOSINOPHILS % (AUTO) 0.7 % (0.0-4.0); HEMATOCRIT 38.9 % (36-48); HEMOGLOBIN 12.9 g/dL (12.0-16.0); LYMPHOCYTES # (AUTO) 1.6 K/uL (2.5-16.5); LYMPHOCYTES % (AUTO) 16.7 % (20.5-51.1); MEAN CORPUSCULAR HEMOGLOBIN 31 pg (27-31); MEAN CORPUSCULAR HGB CONC 33 g/dL (33-37); MEAN CORPUSCULAR VOLUME 92.7 fL (80-94); MONOCYTES # (AUTO) 1.2 K/uL (0.8-1.0); MONOCYTES % (AUTO) 11.8 % (1.7-9.3); NEUTROPHILS # (AUTO) 6.9 K/uL (1.8-7.7); NEUTROPHILS % (AUTO) 70.4 % (42.2-75.2); PLATELET COUNT (AUTO) 315 K/uL (140-450); RED CELL DISTRIBUTION WIDTH 13.3 % (11.6-13.7); WHITE BLOOD COUNT (AUTO) 9.9 K/uL (4.8-10.8)
[2018-12-24 03:02] LABS: APPEARANCE,URINE CLEAR (CLEAR); BILIRUBIN,URINE NEGATIVE (NEGATIVE); BLOOD, URINE TRACE-L (NEGATIVE); COLOR,URINE YELLOW (YELLOW); LEUKOCYTE ESTERASE ,URINE 3+ (NEGATIVE); NITRITE, URINE NEGATIVE (NEGATIVE); UGLUCOSE NEGATIVE (NEGATIVE)
[2018-12-24 03:13] LABS: CARBON DIOXIDE 32.6 mmol/L (21-32); CHLORIDE 96 mmol/L (98-107); CREATININE 0.8 mg/dL (0.6-1.3); GLUCOSE 134 mg/dL (74-106); POTASSIUM 3.6 mmol/L (3.5-5.1); SODIUM SERUM 135 mmol/L (136-145); UREA NITROGEN, BLOOD 11 mg/dL (7-18)
[2018-12-24 03:19] LABS: ALBUMIN 3.3 g/dL (3.4-5.0); ASPARTATE AMINOTRANSFERASE 20 U/L (15-37); TOTAL BILIRUBIN 0.6 mg/dL (0.0-1.0)
[2018-12-24 03:27] LABS: CREATINE KINASE MB 0.8 ng/mL (0-3.6)
[2018-12-24 03:28] LABS: RBC,URINE 0-5 /HPF (0-5)
--- NOTE | 2018-12-24 03:45 | NUR ---
Patient discharged with v/s stable. Written and verbal after care instructions given and explained. Patient alert, oriented and verbalized understanding of instructions. Ambulatory with steady gait. All questions addressed prior to discharge. ID band removed. Patient advised to follow up with PMD. Rx of CIPRO AND NAPROSYN given. Patient educated on indication of medication including possible reaction and side effects. Opportunity to ask questions provided and answered.
[2018-12-24 03:46] VITALS: BP 136/76
--- NOTE | 2018-12-24 03:47 | NUR ---
PT DC BY DR. WALTERS. PT SIGNED DC PAPERWORK AT 0259. IV ANTIBIOTICS STILL INFUSING AT TIME PAPERWORK SIGNED.
--- NOTE | 2018-12-26 16:34 | NUR ---
PT'S DAUGHTER CALLED WITH NO ANSWER, WILL TRY AGAIN. DR. HEREDIA CALLED AND LEFT A MESSAGE FOR PATIENT ON HER PRIMARY PHONE NUMBER TO CALL US BACK.
== END 2018-12-24 03:45 | disposition home or self-care (01) ==
LOC: MED 02:18
DX: N39.0 Urinary tract infection, site not specified (principal); R51 Headache; E11.9 Type 2 diabetes mellitus without complications; I10 Essential (primary) hypertension; Z79.84 Long term (current) use of oral hypoglycemic drugs; Z79.899 Other long term (current) drug therapy
CPT/HCPCS: 36415; 80053; 81001; 82550; 82553; 83880; 84484; 85025; 87086; 96365; 96375; 99283; J0696; J1885; J7030; 87186

== ENCOUNTER 2019-06-24 10:45 | Inpatient (IN) | payer OTHER ==
[~2019-06-24] VITALS: Ht 165.1 cm; Wt 77.1 kg
[~2019-06-24 10:45] MED LIST changes: -MER1I IV; +MERO1VIA13 IV
[2019-06-24 10:55] VITALS: BP 136/80
--- NOTE | 2019-06-24 11:12 | NUR ---
xray at bedside
--- NOTE | 2019-06-24 11:20 | NUR ---
74/F c/o worsening headache, bodyaches, fatigue x 3 days intermittent dysuria < months; frequent UTIs and seeing urologist outpatient. States n/v yesterday. AOx4. Denies fever or cough or SOB at this time---full clear speech, ambulatory with steady gait, no facial asymmetry noted. Denies unilateral or focal weakness. hx--DM, HTN, HLD rx--
--- NOTE | 2019-06-24 11:24 | NUR ---
DR NORMAN EVALUATING PT AT BEDSIDE
[2019-06-24] MEDS ORDERED: KETOROLAC 15 MG/ML VIAL IVP ONE (11:30)
[2019-06-24] MEDS ORDERED: NACL 0.9% 1,000 ML IV ONE (11:30)
[2019-06-24] MEDS ORDERED: ONDANSETRON 4 MG/2 ML VIAL IVP ONE (11:30)
--- NOTE | 2019-06-24 11:57 | NUR ---
BLOOD DRAW HANDED TO SHIP RIGGER APPRENTICE
[2019-06-24 12:13] LABS: BASOPHILS % (AUTO) 0.2 % (0.0-2.0); EOSINOPHILS % (AUTO) 0.1 % (0.0-4.0); HEMATOCRIT 39.1 % (36-48); HEMOGLOBIN 13.3 g/dL (12.0-16.0); LYMPHOCYTES % (AUTO) 6.3 % (20.5-51.1); MEAN CORPUSCULAR HEMOGLOBIN 31 pg (27-31); MEAN CORPUSCULAR HGB CONC 34 g/dL (33-37); MEAN CORPUSCULAR VOLUME 90.4 fL (80-94); MONOCYTES # (AUTO) 1.5 K/uL (0.8-1.0); MONOCYTES % (AUTO) 9.9 % (1.7-9.3); NEUTROPHILS % (AUTO) 83.5 % (42.2-75.2); PLATELET COUNT (AUTO) 337 K/uL (140-450); RED BLOOD CELL COUNT(AUTO) 4.33 MIL/uL (4.20-5.40); RED CELL DISTRIBUTION WIDTH 13.4 % (11.6-13.7); WHITE BLOOD COUNT (AUTO) 15.6 K/uL (4.8-10.8)
[2019-06-24 12:35] LABS: CARBON DIOXIDE 25.8 mmol/L (21-32); CHLORIDE 90 mmol/L (98-107); CREATININE 0.9 mg/dL (0.6-1.3); GLUCOSE 135 mg/dL (74-106); POTASSIUM 3.8 mmol/L (3.5-5.1); SODIUM SERUM 126 mmol/L (136-145); UREA NITROGEN, BLOOD 12 mg/dL (7-18)
[2019-06-24 12:52] LABS: ALBUMIN 3.1 g/dL (3.4-5.0); ASPARTATE AMINOTRANSFERASE 20 U/L (15-37); LIPASE 131 U/L (73-393); TOTAL BILIRUBIN 0.6 mg/dL (0.0-1.0)
--- NOTE | 2019-06-24 13:13 | NUR ---
CALLED LAB REGARDING URINE SAMPLE. LAB STATES THEY HAVE THE URINE AND WILL PROCESS IT NOW.
[2019-06-24 14:04] LABS: APPEARANCE,URINE HAZY (CLEAR); BILIRUBIN,URINE NEGATIVE (NEGATIVE); BLOOD, URINE TRACE-I (NEGATIVE); COLOR,URINE YELLOW (YELLOW); LEUKOCYTE ESTERASE ,URINE 1+ (NEGATIVE); NITRITE, URINE POSITIVE (NEGATIVE); UGLUCOSE NEGATIVE (NEGATIVE)
[2019-06-24 14:18] LABS: RBC,URINE 0-5 /HPF (0-5)
[2019-06-24] MEDS ORDERED: MEROPENEM 1,000 MG in NACL 0.9% 100 ML IV ONE (14:40)
[2019-06-24] MEDS ORDERED: MEROPENEM 1,000 MG VIAL IV ONE (14:43)
--- NOTE | 2019-06-24 15:02 | NUR ---
CONTACTED NEXT OF KIN STEVE [phone], ASKED FAMILY TO BRING LIST OF HOME MEDS. PT DOES NOT KNOW HER HOME MEDS.
[2019-06-24] MEDS ORDERED: ACETAMINOPHEN EXTRA STRENGTH 500 MG TAB ONE (15:49)
--- NOTE | 2019-06-24 15:49 | NUR ---
CORE JAVA SOFTWARE ENGINEER JEN NOTIFIED DR. NORMAN OF ORAL TEMP 102.1. PER DR. NORMAN, ADMIN 1000 MG TYLENOL AND RECHECK TEMP.
[2019-06-24] MEDS ORDERED: IBUPROFEN 600 MG TAB PO ONE (15:50)
[2019-06-24] MEDS ORDERED: ACETAMINOPHEN EXTRA STRENGTH 500 MG TAB PO ONE (15:50)
[2019-06-24] MEDS ORDERED: ONDANSETRON 4 MG/2 ML VIAL IVP PRN (16:10)
[2019-06-24] MEDS ORDERED: DEXTROSE 50% 50 ML SYR IVP PRN (16:20)
[2019-06-24] MEDS ORDERED: INSULIN LISPRO SLIDING SCALE 100 UNITS/ML VIAL SUBQ PRN (16:20)
--- NOTE | 2019-06-24 17:05 | NUR ---
Patient will be admitted to care of DR. BLANKENSHIP. Admited to MED SURG. Will go to room 119B. Belongings list completed. Report to IGGY RAYA.
[2019-06-24] MEDS: BLOOD GLUCOSE MONITORING 1 DEV DEV FS SCH ×2 (17:20→21:19)
--- NOTE | 2019-06-24 17:20 | NUR ---
Patient admitted from ED to room 119B via gurney. Amb to bed with assist. Patient aaox4, maldivian-speaking. DonorsPlay fisheries director used ([employer] # [id number]) to obtain medical hx. Left forearm IV occluded, site discontinued, cannula intact. New IV access started to right hand 22G. Initiated IVF NS @ 75ml/hr. Patient c/o 8/10 headache, no nausea. Pt received tylenol from ED at 1600. Dr. Jolene peters. Pt oriented to room and unit. Call light within reach.
[2019-06-24] MEDS: NACL 0.9% 1,000 ML IV SCH (17:30)
--- NOTE | 2019-06-24 18:00 | NUR ---
Dr. Fernández notified on the phone re: pt persistent headache, no other prn pain med ordered. Per doctor, no new orders at this time. Cont to monitor patient.
--- NOTE | 2019-06-24 18:30 | NUR ---
Granddaughter dropped off patient's phone and conveyor belt repairer in front lobby. Items given to patient.
[2019-06-24 18:35] VITALS: BP 120/61
--- NOTE | 2019-06-24 19:20 | NUR ---
Report given to pm nurse Clemencia. Pt talking on the phone, no signs of distress.
--- NOTE | 2019-06-24 19:21 | NUR ---
RECD. SITTING ON BED, AWAKE, A/OX4. RESPIRATION EVEN AND UNLABORED. IV OF NS AT 75 ML/HR INFUSING, RIGHT HAND G22. INDEPENDENT, ABLE TO AMBULATE BY HERSELF. PLAN OF CARE FOR THE SHIFT DISCUSSED. VERBALIZED UNDERSTANDING. DENIES PAIN 0/10.
--- NOTE | 2019-06-24 19:35 | NUR ---
Patient's Plan of Care was discussed and reviewed with DYNAMOMETER TESTER ENGINE:JOY DAVIS
[2019-06-24] MEDS: ACETAMINOPHEN 325 MG TAB PO PRN (21:11)
[2019-06-24] MEDS: SIMVASTATIN 40 MG TAB PO SCH (21:11)
--- NOTE | 2019-06-24 21:11 | NUR ---
SHAKING, TEMPERATURE CHECKED - 100.4F. MEDICATED WITH TYLENOL PO PER MD ORDER. COOLING MEASURES GIVEN.
[2019-06-24] MEDS: MEROPENEM 1,000 MG in NACL 0.9% 100 ML IV SCH (21:58)
--- NOTE | 2019-06-24 22:10 | NUR ---
TEMPERATURE CHECKED - 99.6F, SLEEPING COMFORTABLY IN BED.
[2019-06-25] VITALS: BP 117/63
--- NOTE | 2019-06-25 | NUR ---
TEMPERATURE CHECKED - 100.2 F, CONTINUED COOLING MEASURES.
[2019-06-25] MEDS: ACETAMINOPHEN 325 MG TAB PO PRN ×4 (01:15→21:43)
--- NOTE | 2019-06-25 01:15 | NUR ---
TEMPERATURE CHECKED - 100.2 F, WITH HEADACHE. MEDICATED WITH TYLENOL PER MD ORDER, CONTINUED COOLING MEASURES.
--- NOTE | 2019-06-25 02:15 | NUR ---
TEMPERATURE CHECKED - 99.6 F. SLEEPING COMFORTABLY IN BED.
[2019-06-25 04:00] VITALS: BP 96/41
--- NOTE | 2019-06-25 04:00 | NUR ---
TEMPERATURE CHECKED - 99.8F, STILL SLEEPING COMFORTABLY IN BED.
[2019-06-25] MEDS: NACL 0.9% 1,000 ML IV SCH ×2 (05:27→17:54)
[2019-06-25 06:44] LABS: BASOPHILS # (AUTO) 0.1 K/uL (0.00-0.22); BASOPHILS % (AUTO) 0.3 % (0.0-2.0); EOSINOPHILS % (AUTO) 0.1 % (0.0-4.0); HEMATOCRIT 36.5 % (36-48); HEMOGLOBIN 12.3 g/dL (12.0-16.0); LYMPHOCYTES # (AUTO) 1.7 K/uL (2.5-16.5); LYMPHOCYTES % (AUTO) 10.4 % (20.5-51.1); MEAN CORPUSCULAR HEMOGLOBIN 31 pg (27-31); MEAN CORPUSCULAR HGB CONC 34 g/dL (33-37); MONOCYTES # (AUTO) 1.4 K/uL (0.8-1.0); MONOCYTES % (AUTO) 8.6 % (1.7-9.3); NEUTROPHILS # (AUTO) 13.1 K/uL (1.8-7.7); NEUTROPHILS % (AUTO) 80.6 % (42.2-75.2); PLATELET COUNT (AUTO) 304 K/uL (140-450); RED BLOOD CELL COUNT(AUTO) 3.97 MIL/uL (4.20-5.40); WHITE BLOOD COUNT (AUTO) 16.3 K/uL (4.8-10.8)
[2019-06-25 07:11] LABS: ALBUMIN 2.5 g/dL (3.4-5.0); ANION GAP 9.9 (8-16); ASPARTATE AMINOTRANSFERASE 17 U/L (15-37); CARBON DIOXIDE 26.1 mmol/L (21-32); CHLORIDE 98 mmol/L (98-107); CREATININE 0.9 mg/dL (0.6-1.3); GLUCOSE 111 mg/dL (74-106); SODIUM SERUM 130 mmol/L (136-145); TOTAL BILIRUBIN 0.4 mg/dL (0.0-1.0); UREA NITROGEN, BLOOD 10 mg/dL (7-18)
[2019-06-25] MEDS: BLOOD GLUCOSE MONITORING 1 DEV DEV FS SCH ×4 (07:14→21:41)
--- NOTE | 2019-06-25 07:14 | NUR ---
AWAKE IN BED, RESPIRATION EVEN AND UNLABORED. ENDORSED TO AM SHIFT NURSE FOR CONTINUITY OF CARE.
--- NOTE | 2019-06-25 07:15 | NUR ---
RECEIVED REPORT FROM NIGHT NURSE PT IS STABLE NO DISTRESS NOTED
[2019-06-25 08:00] VITALS: BP 121/63
--- NOTE | 2019-06-25 08:59 | NUR ---
PATIENT HAS BEEN SCREENED AND CATEGORIZED MODERATE NUTRITION RISK. PATIENT WILL BE SEEN WITHIN 3-5 DAYS OF ADMISSION. 06/27/19 06/29/[address]
--- NOTE | 2019-06-25 09:00 | NUR ---
MEDICATIONS DUE GIVEN CHECH VITAL SIGNS PTIOR TO MEDICATION. BP 159/72 TX: 84. PT COMPLAINS OF HEADACHE.WILL CONTINUE TO MONITOR.
[2019-06-25] MEDS: LOSARTAN 50 MG TAB PO SCH (09:37)
[2019-06-25] MEDS: PANTOPRAZOLE 40 MG TABEC PO SCH (09:38)
[2019-06-25] MEDS: ENOXAPARIN 40 MG/0.4 ML SYR SUBQ SCH (09:39)
[2019-06-25] MEDS: MEROPENEM 1,000 MG in NACL 0.9% 100 ML IV SCH ×2 (09:43→21:05)
--- NOTE | 2019-06-25 09:46 | NUR ---
ASSESSED PT AND COMPLAINS OF HEADACHE 09/04.GAVE TYLENOL 325MG 2 TABLET FOR PRN MILD PAIN. WILL CONTINUE TO MONITOR.
--- NOTE | 2019-06-25 11:30 | NUR ---
BLOOD GLUCOSE MONITORING DONE 119MG/DL. WILL CONTINUE TO MONITOR.
[2019-06-25 12:00] VITALS: BP 133/98
--- NOTE | 2019-06-25 12:10 | NUR ---
DC PLANNIN YRS LD FEMALE PATIENT WAS ADMITTED FROM HOME WITH A DX OF SEPSIS AND UTI. PT HAS A HX OF DM, HTN. CXR NEGATIVE. URINE AND BLOOD CULTURE PENDING. ADMINISTERED MEROPENEM IV ABX . DC PLAN TO GO HOME WHEN STABLE CM TO FOLLOW. Addendum: 06/27/19 at 1041 by Kelly Jacinto CM LATE ENTRY FOR 06/26/2019: RECEIVED AN ORDER FOR HOME HEALTH FOR IV ANTIBIOTICS. ORDER SENT TO [facility]. Addendum: 06/27/19 at 1043 by Kelly Jacinto 0917: ALYSON FLOYD OF [facility] TO SEND IT TO [facility]. REFERRAL SENT TO [facility] AT [phone] AND [facility] AT [phone]. WILL FOLLOW UP. Addendum: 06/27/19 at 1051 by Kelly Jacinto CM CONTACTED [facility] AT [phone], ABLE TO SPEAK TO YUMIKO. SHE STATED THEIR INTAKE IS STILL IN THE MEETING AND WILL FOLLOW UP. PROVIDED HER OF MY CONTACT INFO. Addendum: 06/27/19 at 1149 by Kelly Jacinto CM PER YUMIKO OF [facility] THEY ARE NOT ABLE TO ACCEPT PATIENT. MARIEL OF [facility] MADE AWARE. CONTACTED [facility] IF THEY ARE ABLE TO PROVIDE NURSING. PER NGHIA SHE WILL CHECK WITH NURSING AND WILL GET BACK TO ME. Addendum: 06/27/19 at 1426 by Kelly Jacinto CM PER NGHIA [facility], THEY ARE ABLE TO PROVIDE NURSING WELL. RECEIVED A CALL FROM BO PHILLIPS [facility], INFORMING THAT THEIR PHARMACY IS REQUIRING THE HOSPITAL TO GIVE THE INITIAL DOSE OF ERTAPENEM TO MONITOR PATIENT FOR ANY ALLERGIC REACTIONS AND/OR AN ORDER FOR ANAPHYLACTIC KIT. I TOLD HER THAT I WILL INFORM THE DOCTOR. CONTACTED DR. BLANKENSHIP AT [phone], HE STATED OK AND TO HAVE THE NURSE ENTER THE ORDER. CHARGE NURSE MADE AWARE. Addendum: 06/27/19 at 1435 by Kelly Jacinto CM RECEIVED A CALL FROM CHARGE NURSE STATING THE PER PHARMACY, WE DO NOT CARRY ERTAPENEM. CONTACTED [facility], SHE STATED SHE WILL HAVE THE PHARMACIST CALL ME FOR INSTRUCTIONS. Addendum: 06/27/19 at 1531 by Kelly Jacinto CM RECEIVED A CALL FROM THUAN [facility], REQUESTING FOR VERBAL ORDER FOR ANAPHYLAXIS KIT AND IF FLUSHES PER PHARMACY PROTOCOL. PER MARIEL OF [facility] OK TO GIVE VERBAL ORDER. THUAN HUNTER [facility] MADE AWARE. PATIENT'S DAUGHTER BO MADE AWARE THE [facility] AND PHARMACY WILL BE CONTACTING THEM FOR MORE INFORMATION.
--- NOTE | 2019-06-25 12:22 | NUR ---
Manager Planning Note: CHICHO left VM with Claudia Márquez to complete assessment [phone]. SW will follow up.
[2019-06-25 16:00] VITALS: BP 147/62
--- NOTE | 2019-06-25 16:30 | NUR ---
US OF KIDNEYS FOR RECURRENT UTI AT THIS TIME. PT IS STABLE. WILL CONTINUE TO MONITOR.
--- NOTE | 2019-06-25 16:45 | NUR ---
CHECK VITAL SIGNS AND PT IS HAVING A FEVER OF 101.4. REPORTED TO DR BLANKENSHIP AND GAVE TYLENOL FOR FEVER. WILL CONTINUE TO MONITOR.
--- NOTE | 2019-06-25 19:13 | NUR ---
ENDORSED PT TO NIGHT NURSE. PT IS STABLE
--- NOTE | 2019-06-25 19:14 | NUR ---
RECD. RESTING IN BED, AWAKE, A/OX4. RESPIRATION EVEN AND UNLABORED. IV OF NS AT 75 ML/HR INFUSING, RIGHT HAND G22. AFEBRILE AT THIS TIME, T - 99.2. PLAN OF CARE FOR THE SHIFT DISCUSSED. VERBALIZED UNDERSTANDING. DENIES PAIN 0/10.
--- NOTE | 2019-06-25 19:14 | NUR ---
Patient's Plan of Care was discussed and reviewed with SHAR: JOY. SAFETY MEASURES ARE IN PLACE. WILL CONTINUE TO MONITOR.
[2019-06-25 20:00] VITALS: BP 125/61
[2019-06-25] MEDS: SIMVASTATIN 40 MG TAB PO SCH (21:29)
--- NOTE | 2019-06-25 21:43 | NUR ---
WITH HEADACHE, MEDICATED WITH TYLENOL PER MD ORDER.
[2019-06-25] MEDS ORDERED: ZOLPIDEM 10 MG TAB PO PRN (22:25)
--- NOTE | 2019-06-25 22:45 | NUR ---
RESTING IN BED, DENIES HEADACHE, 0/10.
--- NOTE | 2019-06-25 23:00 | NUR ---
IV INFILTRATED. WILL INSERT A NEW ONE. PATIENT WANTS IT LATER.
--- NOTE | 2019-06-25 23:47 | NUR ---
UNABLE TO SLEEP, MEDICATED WITH AMBIEN 10 MG. PO.
[2019-06-26] VITALS: BP 137/73
--- NOTE | 2019-06-26 00:45 | NUR ---
SLEEPING COMFORTABLY IN BED.
--- NOTE | 2019-06-26 03:00 | NUR ---
WAKEN UP PATIENT, NEW IV LINE INSERTED BY LYN RAYA, RIGHT AC G24.
[2019-06-26 04:00] VITALS: BP 128/62
[2019-06-26] MEDS: NACL 0.9% 1,000 ML IV SCH ×3 (04:00→21:27)
--- NOTE | 2019-06-26 04:10 | NUR ---
ASSISTED TO CHANGE GOWN AND PUT ON NEW UNDERWEAR. WENT BACK TO SLEEP.
[2019-06-26] MEDS: MEROPENEM 1,000 MG in NACL 0.9% 100 ML IV SCH ×3 (05:06→20:19)
--- NOTE | 2019-06-26 06:30 | NUR ---
ABLE TO SLEEP WELL. NO FEVER NOTED DURING SHIFT.
--- NOTE | 2019-06-26 07:30 | NUR ---
ENDORSED TO AM SHIFT NURSE FOR CONTINUITY OF CARE.
--- NOTE | 2019-06-26 07:31 | NUR ---
RECEIVED REPORT FROM SPEEDER WORKER NURSE, FOR CONTINUITY OF CARE. PT IS LYING IN BED RESTING, AROUSABLE TO VOICE. ICELANDIC SPEAKING. A&OX4. RESPIRATIONS ARE EVEN AND UNLABORED, BREATHING TO RA. RAC 24G IV IS PATENT AND INTACT. REVIEWED PLAN OF CARE WITH PT. SAFETY MEASURES IN PLACE; BED IN LOW POSITION, CALL LIGHT WITHIN REACH. NO DISTRESS NOTED. WILL CONTINUE TO MONITOR.
[2019-06-26] MEDS: BLOOD GLUCOSE MONITORING 1 DEV DEV FS SCH ×4 (07:35→20:26)
[2019-06-26 07:39] LABS: BASOPHILS # (AUTO) 0.1 K/uL (0.00-0.22); BASOPHILS % (AUTO) 0.4 % (0.0-2.0); EOSINOPHILS # (AUTO) 0.1 K/uL (0-0.4); EOSINOPHILS % (AUTO) 0.7 % (0.0-4.0); HEMOGLOBIN 11.7 g/dL (12.0-16.0); LYMPHOCYTES # (AUTO) 1.6 K/uL (2.5-16.5); LYMPHOCYTES % (AUTO) 13.6 % (20.5-51.1); MEAN CORPUSCULAR HEMOGLOBIN 31 pg (27-31); MEAN CORPUSCULAR HGB CONC 33 g/dL (33-37); MEAN CORPUSCULAR VOLUME 92.2 fL (80-94); MONOCYTES # (AUTO) 1.5 K/uL (0.8-1.0); MONOCYTES % (AUTO) 12.4 % (1.7-9.3); NEUTROPHILS # (AUTO) 8.7 K/uL (1.8-7.7); NEUTROPHILS % (AUTO) 72.9 % (42.2-75.2); PLATELET COUNT (AUTO) 349 K/uL (140-450); RED CELL DISTRIBUTION WIDTH 12.9 % (11.6-13.7); WHITE BLOOD COUNT (AUTO) 11.9 K/uL (4.8-10.8)
[2019-06-26 08:00] VITALS: BP 133/72
--- NOTE | 2019-06-26 09:05 | NUR ---
LATE ENTRY 1L NS @ 500 ML/HR END TIME: 1350 ON 06/24/19 MERREM 1GRAM END TIME: 1520 ON 06/24/19
[2019-06-26 09:06] LABS: ANION GAP 10.4 (8-16); CARBON DIOXIDE 27.6 mmol/L (21-32); CHLORIDE 99 mmol/L (98-107); CREATININE 0.9 mg/dL (0.6-1.3); GLUCOSE 113 mg/dL (74-106); SODIUM SERUM 133 mmol/L (136-145); UREA NITROGEN, BLOOD 8 mg/dL (7-18)
--- NOTE | 2019-06-26 11:30 | NUR ---
PATIENT WENT TO THE RESTROOM. NO SOB. DENIES PAIN. CALL LIGHT WITHIN REACH. WILL CONTINUE TO MONITOR. Addendum: 06/27/19 at 0244 by Ruma Sherwood RN ABOVE NOTES ERROR. INCORRECT TIME.
--- NOTE | 2019-06-26 11:30 | NUR ---
PATIENT USED THE RESTROOM. DENIES PAIN. NO SOB. ASSISTED PATIENT TO BED SAFELY. CALL LIGHT WITHIN REACH. WILL CONTINUE TO MONITOR. Addendum: 06/27/19 at 0244 by Ruma Sherwood RN ABOVE NOTES ERROR. INCORRECT TIME.
[2019-06-26] MEDS: PANTOPRAZOLE 40 MG TABEC PO SCH (11:50)
[2019-06-26] MEDS: LOSARTAN 50 MG TAB PO SCH (11:50)
[2019-06-26] MEDS: ENOXAPARIN 40 MG/0.4 ML SYR SUBQ SCH (11:58)
[2019-06-26 12:00] VITALS: BP 126/70
--- NOTE | 2019-06-26 12:04 | NUR ---
PT'S GRANDSON JOSH CALLED REGARDING THE PT'S HOME MEDICATIONS. JOSH STATED THAT HIS GRANDMOTHER TAKES METFORMIN 500MG ONCE DAILY FOR DIABETES, AND HCTZ 25MG ONCE DAILY. HE ALSO STATED THAT SHE TAKES LOSARTAN 50MG, AND SIMVASTATIN 40 MG AT HOME, WHICH WAS ALREADY GIVEN TODAY. BLOOD SUGAR CHECKED: BGL:102; NO COVERAGE NEEDED. BP: 133/72. WILL CONTINUE TO MONITOR.
--- NOTE | 2019-06-26 14:20 | NUR ---
DR BLANKENSHIP AT BEDSIDE, EXPLAINING MIDLINE INSERTION PROCEDURE FOR USE OF IV ANTIBIOTICS AT HOME. WALL CRANE OPERATOR PHONE USED, PT IS JORDANIAN SPEAKING. WALL CRANE OPERATOR NUMBER: [id number]. PT SIGNED CONSENT FOR MIDLINE INSERTION. DR BLANKENSHIP IS AWARE OF PT'S HOME MEDS.
--- NOTE | 2019-06-26 14:23 | NUR ---
CONTACTED PICC LINE SERVICE FOR MID LINE INSERTION, SPOKE WITH MAX, STATED ANA WILL CALL FOR ETA. MEGAN NOTIFIED.
--- NOTE | 2019-06-26 15:40 | NUR ---
PICC LINE NURSE COMPLETED MIDLINE INSERTION. MIDLINE ON LEFT UPPER ARM, TWO LUMEN.
[2019-06-26 16:00] VITALS: BP 132/74
--- NOTE | 2019-06-26 18:20 | NUR ---
BLOOD SUGAR RECHECKED; BGL: 188 MG/DL. Addendum: 06/26/19 at 2256 by Sharmila Dahl RN WRONG PT.
[2019-06-26] MEDS: ACETAMINOPHEN 325 MG TAB PO PRN (19:42)
--- NOTE | 2019-06-26 19:42 | NUR ---
PRN TYLENOL GIVEN FOR PATIENT COMPLAINTS OF BACK PAIN.
--- NOTE | 2019-06-26 19:43 | NUR ---
ENDORSED TO RESTAURANT MGR NURSE FOR CONTINUITY OF CARE. PT IS IN STABLE CONDITION.
--- NOTE | 2019-06-26 19:44 | NUR ---
RECEIVED BEDSIDE ENDORSEMENT FROM AM SHIFT RN. PATIENT IS ON BED. AWAKE. ABLE TO MAKE NEEDS KNOWN. BENGALI SPEAKING. RESPIRATION EVEN AND UNLABORED. NO SOB. CONTACT PRECAUTION OBSERVED AT ALL TIMES. PLAN OF CARE WAS DISCUSSED. CALL LIGHT WITHIN REACH. WILL CONTINUE TO MONITOR.
[2019-06-26] MEDS: SIMVASTATIN 40 MG TAB PO SCH (20:20)
--- NOTE | 2019-06-26 20:33 | NUR ---
DUE MEDS GIVEN ORDERED. TOLERATED WELL. NO A/R NOTED. WILL CONTINUE TO MONITOR.
--- NOTE | 2019-06-26 23:30 | NUR ---
PATIENT USED THE RESTROOM. DENIES PAIN. NO SOB. ASSISTED PATIENT TO BED SAFELY. CALL LIGHT WITHIN REACH. WILL CONTINUE TO MONITOR.
[2019-06-27] VITALS: BP 137/65
--- NOTE | 2019-06-27 02:45 | NUR ---
PATIENT IS SLEEPING AT THIS TIME. RESPIRATION EVEN AND UNLABORED. NO SOB. CALL LIGHT WITHIN REACH. WILL CONTINUE TO MONITOR.
[2019-06-27] MEDS: MEROPENEM 1,000 MG in NACL 0.9% 100 ML IV SCH ×2 (04:19→12:45)
--- NOTE | 2019-06-27 04:19 | NUR ---
MEROPENEM 1G IVPB GIVEN ORDERED. NO A/R NOTED. WILL CONTINUE TO MONITOR.
--- NOTE | 2019-06-27 05:36 | NUR ---
PATIENT IS ASLEEP. NO SOB. KEPT CLEAN, DRY AND COMFORTABLE AT ALL TIMES. CALL LIGHT WITHIN REACH. WILL CONTINUE TO MONITOR.
[2019-06-27] MEDS: BLOOD GLUCOSE MONITORING 1 DEV DEV FS SCH ×2 (06:34→12:07)
--- NOTE | 2019-06-27 07:21 | NUR ---
PATIENT IS AWAKE. RESPIRATION EVEN AND UNLABORED. NO SOB. ENDORSED TO AM SHIFT RN FOR CONTINUITY OF CARE.
[2019-06-27 07:52] LABS: BASOPHILS % (AUTO) 0.6 % (0.0-2.0); EOSINOPHILS # (AUTO) 0.2 K/uL (0-0.4); EOSINOPHILS % (AUTO) 2.3 % (0.0-4.0); HEMATOCRIT 36.1 % (36-48); HEMOGLOBIN 12.3 g/dL (12.0-16.0); LYMPHOCYTES # (AUTO) 2.2 K/uL (2.5-16.5); MEAN CORPUSCULAR HEMOGLOBIN 31 pg (27-31); MEAN CORPUSCULAR HGB CONC 34 g/dL (33-37); MEAN CORPUSCULAR VOLUME 92.1 fL (80-94); MONOCYTES # (AUTO) 0.9 K/uL (0.8-1.0); MONOCYTES % (AUTO) 10.8 % (1.7-9.3); NEUTROPHILS # (AUTO) 4.8 K/uL (1.8-7.7); NEUTROPHILS % (AUTO) 59.3 % (42.2-75.2); PLATELET COUNT (AUTO) 393 K/uL (140-450); RED BLOOD CELL COUNT(AUTO) 3.92 MIL/uL (4.20-5.40); RED CELL DISTRIBUTION WIDTH 13.1 % (11.6-13.7); WHITE BLOOD COUNT (AUTO) 8.2 K/uL (4.8-10.8)
--- NOTE | 2019-06-27 07:54 | NUR ---
RECEIVED REPORT FROM HIGH PRESSURE OPERATOR NURSE. PT IS CURRENTLY ALERT, AWAKE, AND LAYING IN BED WITH NO SIGNS OF DISTRESS NOTED. SKIN IS INTACT WITH IV PATENT ASYMPTOMATIC AND INFUSING PER ORDER. RESPIRATIONS EVEN AND UNLABORED CLEAR THROUGHOUT ON ROOM AIR. BED IS IN LOW SEMI-FOWLERS POSITION WITH SAFETY MEASURES IN PLACE, CALL LIGHT WITHIN REACH.
[2019-06-27 08:00] VITALS: BP 148/73
[2019-06-27 08:00] LABS: ANION GAP 13.4 (8-16); CARBON DIOXIDE 25.6 mmol/L (21-32); CHLORIDE 101 mmol/L (98-107); CREATININE 0.9 mg/dL (0.6-1.3); GLUCOSE 99 mg/dL (74-106); SODIUM SERUM 136 mmol/L (136-145); UREA NITROGEN, BLOOD 11 mg/dL (7-18)
[2019-06-27] MEDS: ACETAMINOPHEN 325 MG TAB PO PRN (09:52)
[2019-06-27] MEDS: PANTOPRAZOLE 40 MG TABEC PO SCH (09:52)
[2019-06-27] MEDS: LOSARTAN 50 MG TAB PO SCH (09:52)
[2019-06-27] MEDS: ENOXAPARIN 40 MG/0.4 ML SYR SUBQ SCH (09:58)
--- NOTE | 2019-06-27 09:58 | NUR ---
ADMINISTERED MEDICATIONS PER ORDER AND TOLERATED WELL. PT COMPLAIN OF 3-4/10 BACK PAIN. ADMINISTERED TYLENOL FOR PAIN AND WILL REASSESS IN ONE HOUR. NO OTHER COMPLAINTS OF AT THIS TIME. SAFETY MEASURES I NPLACE AND WILL CONTINUE TO MONITOR.
[2019-06-27] MEDS: NACL 0.9% 1,000 ML IV SCH (10:05)
--- NOTE | 2019-06-27 10:50 | NUR ---
PT RETURNED FROM EGD. PT IS CURRENTLY LETHARGIC, VITAL SIGNS ARE WITHIN NORMAL RANGE. SAFETY MEASURES IN PLACE AND WILL CONTINUE TO MONITOR. Addendum: 06/27/19 at 1057 by Moraima Pratt RN WRONG PATIENT
[2019-06-27] MEDS ORDERED: INV1I IV (11:54)
--- NOTE | 2019-06-27 12:49 | NUR ---
ADMINISTERED MEDICATIONS PER ORDER AND TOLERATED WELL. BLOOD GLUCOSE WAS 102 THEREFORE NO INSULIN COVERAGE WS NEEDED. PATIENT DOES NOT COMPLAIN OF ANY PAIN AT THIS TIME AND WILL CONTINUE TO MONITOR.
[2019-06-27 13:50] VITALS: BP 148/73
[2019-06-27] MEDS ORDERED: ERTAPENEM SODIUM 1,000 MG in NACL 0.9% 50 ML IV ONE (14:25)
--- NOTE | 2019-06-27 15:18 | NUR ---
SPOKE TO PT ABOUT DISCHARGE FROM HOSPITAL. PT DOES NOT HAVE ANY PAIN AT THIS MOMENT OR COMPLAINTS OF PAIN. SAFETY MEASURES IN PACE AND WILL CONTINUE TO MONITOR.
--- NOTE | 2019-06-30 14:50 | NUR ---
PCP APPOINTMENT: RACHEL LOPES CONTACTED DR. THOMAS MARIO'S OFFICE [phone] TO ARRANGE HOSPITAL FOLLOW UP. APPOINTMENT WAS MADE FOR 07/04/2019 AT 1030. PATIENT WAS NOTIFIED OF TELEPHONE APPOINTMENT. NO FURTHER NEEDS IDENTIFIED.
== END 2019-06-27 16:35 | disposition home or self-care (01) | DRG 720 ==
LOC: MED 10:45 → MTU 16:15
PROVIDERS: ADMIT Internal Medicine; ATTEND Internal Medicine
PROC: 05HY33Z Insertion of Infusion Device into Upper Vein, Percutaneous Approach (ICD-10-PCS; principal; 2019-06-26)
PROC: B54NZZA Ultrasonography of Left Upper Extremity Veins, Guidance (ICD-10-PCS; 2019-06-26)
DX: A41.9 Sepsis, unspecified organism (principal); N39.0 Urinary tract infection, site not specified; E11.9 Type 2 diabetes mellitus without complications; E87.1 Hypo-osmolality and hyponatremia; N28.1 Cyst of kidney, acquired; B96.20 Unspecified Escherichia coli [E. coli] as the cause of diseases classified elsewhere; E66.9 Obesity, unspecified; E78.5 Hyperlipidemia, unspecified; Z16.12 Extended spectrum beta lactamase (ESBL) resistance; I10 Essential (primary) hypertension; Z98.51 Tubal ligation status; Z79.899 Other long term (current) drug therapy; Z68.28 Body mass index [BMI] 28.0-28.9, adult
CPT/HCPCS: 36415; 71045; 76770; 80048; 80053; 81001; 82948; 83690; 83930; 85025; 87040; 87081; 87086; 87186; 96374; 96375; 99285; C1751; J1650; J1885; J2185; J2405; J7030; Q0092

== ENCOUNTER 2019-11-02 12:41 | Emergency (ER) | payer OTHER ==
[~2019-11-02] VITALS: Ht 157.5 cm; Wt 74.8 kg
[~2019-11-02 12:41] MED LIST changes: +INV1I IV; -LOSA50TA66 PO; -MERO1VIA13 IV; -METF-988 PO; -PANT40EC PO; -SIMV40TA1 PO
[2019-11-02 12:47] VITALS: BP 127/101
--- NOTE | 2019-11-02 12:57 | NUR ---
PT AMB TO BED 5.
--- NOTE | 2019-11-02 13:21 | NUR ---
C/O LEFT 4TH FINGER PAIN & SWELLING S/P FALL X TODAY. BLOOD SUGAR 169 AT THIS TIME.PT AOX4 , AFIBRILE , AMBULATORY WITH STEADY GAIT , LEFT 5TH FINGER NO LIMITATION OF ROM .GOOD STEADY RADIAL PULSE. HX: HTN,HLD,DM
[2019-11-02] MEDS ORDERED: ACETAMINOPHEN EXTRA STRENGTH 500 MG TAB PO ONE (13:35)
--- NOTE | 2019-11-02 13:48 | NUR ---
XRAY AT BEDSIDE
[2019-11-02 14:20] VITALS: BP 140/90
--- NOTE | 2019-11-02 14:21 | NUR ---
Patient discharged with v/s stable. Written and verbal after care instructions given and explained bone bruise . Patient alert, oriented and verbalized understanding of instructions. Ambulatory with steady gait. All questions addressed prior to discharge. ID band removed. Patient advised to follow up with PMD. Rx of naprosyn given. Patient educated on indication of medication including possible reaction and side effects. Opportunity to ask questions provided and answered.
== END 2019-11-02 14:21 | disposition home or self-care (01) ==
LOC: MED 12:41
DX: S63.615A Unspecified sprain of left ring finger, initial encounter (principal); E11.9 Type 2 diabetes mellitus without complications; I10 Essential (primary) hypertension; Z79.899 Other long term (current) drug therapy; W22.8XXA Striking against or struck by other objects, initial encounter; Y93.89 Activity, other specified; Y92.89 Other specified places as the place of occurrence of the external cause; Y99.8 Other external cause status
CPT/HCPCS: 73140; 99283

== ENCOUNTER 2021-09-07 15:33 | Inpatient (IN) | payer OTHER ==
[~2021-09-07] VITALS: Ht 152.4 cm; Wt 68.5 kg
[2021-09-07 15:39] VITALS: BP 106/75
[2021-09-07] MEDS ORDERED: NACL 0.9% 1,000 ML IV ONE (15:55)
[2021-09-07 16:14] LABS: BASOPHILS # (AUTO) 0.1 K/uL (0.00-0.22); BASOPHILS % (AUTO) 0.9 % (0.0-2.0); EOSINOPHILS # (AUTO) 0.2 K/uL (0-0.4); EOSINOPHILS % (AUTO) 2.8 % (0.0-4.0); HEMATOCRIT 38.3 % (36-48); LYMPHOCYTES # (AUTO) 2.3 K/uL (2.5-16.5); LYMPHOCYTES % (AUTO) 31.3 % (20.5-51.1); MEAN CORPUSCULAR HEMOGLOBIN 31 pg (27-31); MEAN CORPUSCULAR HGB CONC 34 g/dL (33-37); MEAN CORPUSCULAR VOLUME 90.1 fL (80-94); MONOCYTES # (AUTO) 0.7 K/uL (0.8-1.0); NEUTROPHILS # (AUTO) 4.2 K/uL (1.8-7.7); PLATELET COUNT (AUTO) 369 K/uL (140-450); RED BLOOD CELL COUNT(AUTO) 4.25 MIL/uL (4.20-5.40); RED CELL DISTRIBUTION WIDTH 13.1 % (11.6-13.7); WHITE BLOOD COUNT (AUTO) 7.5 K/uL (4.8-10.8)
--- NOTE | 2021-09-07 16:20 | NUR ---
WALKED IN C/O ABNORMAL LAB OF LOW NA FROM PCP. VITALS STABLE, AAOX4, AMBULATORY, BLOOD DRAWN, PENDING URINE. WILL COLLECT AT A LATER TIME.
[2021-09-07 16:36] LABS: ALBUMIN 3.2 g/dL (3.4-5.0); ANION GAP 12.8 (8-16); ASPARTATE AMINOTRANSFERASE 19 U/L (15-37); CARBON DIOXIDE 25.7 mmol/L (21-32); CHLORIDE 91 mmol/L (98-107); CREATININE 0.9 mg/dL (0.6-1.3); GLUCOSE 115 mg/dL (74-106); POTASSIUM 4.5 mmol/L (3.5-5.1); SODIUM SERUM 125 mmol/L (136-145); TOTAL BILIRUBIN 0.3 mg/dL (0.0-1.0); UREA NITROGEN, BLOOD 14 mg/dL (7-18)
--- NOTE | 2021-09-07 17:00 | NUR ---
EKG DONE AT BEDSIDE
--- NOTE | 2021-09-07 17:11 | NUR ---
XR AT BEDSIDE, COVID SWAB COLLECTED. PT AWARE OF ADMISSION
[2021-09-07] MEDS ORDERED: CARV3.12 PO (17:45)
[2021-09-07] MEDS ORDERED: ESCI5TAB PO (17:45)
[2021-09-07] MEDS ORDERED: LOSA100T1 PO (17:45)
[2021-09-07] MEDS ORDERED: METF-346 PO (17:45)
[2021-09-07] MEDS ORDERED: PANT40EC PO (17:45)
--- NOTE | 2021-09-07 18:42 | NUR ---
pt calm and resting. vss
--- NOTE | 2021-09-07 19:08 | NUR ---
pt ambulated to restroom
[2021-09-07] MEDS ORDERED: DEXTROSE 50% 50 ML SYR IVP PRN (19:10)
[2021-09-07] MEDS ORDERED: INSULIN LISPRO SLIDING SCALE 100 UNITS/ML VIAL SUBQ PRN (19:10)
[2021-09-07] MEDS ORDERED: ONDANSETRON 4 MG/2 ML VIAL IVP PRN (19:10)
--- NOTE | 2021-09-07 19:45 | NUR ---
PATIENT SITTING IN BED TALKING ON THE PHONE. PATIENT STATED SHE IS NOT IN ANY PAIN OR DISTRESS AT THIS TIME. AAOX4. ALL NEEDS MET. CALL LIGHT IN REACH.
[2021-09-07] MEDS: NACL 0.9% 1,000 ML IV SCH (19:59)
--- NOTE | 2021-09-07 21:30 | NUR ---
PATENT ALMA ROSA MCALLISTER
[2021-09-07] MEDS ORDERED: CRUSHER, PILL MC ONE (21:43)
[2021-09-07] MEDS: BLOOD GLUCOSE MONITORING 1 DEV DEV FS SCH (21:50)
[2021-09-07] MEDS: carvediloL 6.25 MG TAB PO SCH (21:52)
--- NOTE | 2021-09-07 23:00 | NUR ---
PATIENT SITTING IN BED. STATED SHE IS NOT IN PAIN OR DISTRESS. RR APPEAR TO BE EVEN AND UNLABORED. ALL NEEDS MET.
--- NOTE | 2021-09-08 00:20 | NUR ---
PRETTY AMBULATED TO THE RR
--- NOTE | 2021-09-08 01:52 | NUR ---
PATIENT SLEEPING IN BED WITH EYES CLOSE. DOESNT APPEAR TO BE IN DISTRESS. RR EVENA AND UNLABORED. ALL NEEDS MET.
--- NOTE | 2021-09-08 02:00 | NUR ---
PATIENT AMBULATED TO THE RR
--- NOTE | 2021-09-08 05:29 | NUR ---
IV removed, catheter intact and site benign. Applied folded 4x4 gauze and tape to stop bleeding.
--- NOTE | 2021-09-08 05:29 | NUR ---
ESTABLISHED IV RIGHT HAND 22G
--- NOTE | 2021-09-08 06:18 | NUR ---
LAB AT BEDSIDE
--- NOTE | 2021-09-08 06:45 | NUR ---
PATIETN IN BED SLEEPING WITH EYES CLOSED. RR APPEAR TO BE EVEN AND UNKLABORED. DOESNT APPEAR TO BE IN DISTRESS. BED LOW AND LOCKED.
[2021-09-08 07:26] LABS: BASOPHILS # (AUTO) 0.1 K/uL (0.00-0.22); BASOPHILS % (AUTO) 0.9 % (0.0-2.0); EOSINOPHILS # (AUTO) 0.2 K/uL (0-0.4); EOSINOPHILS % (AUTO) 2.2 % (0.0-4.0); HEMATOCRIT 39.1 % (36-48); HEMOGLOBIN 13.1 g/dL (12.0-16.0); LYMPHOCYTES # (AUTO) 1.9 K/uL (2.5-16.5); LYMPHOCYTES % (AUTO) 25.4 % (20.5-51.1); MEAN CORPUSCULAR HEMOGLOBIN 31 pg (27-31); MEAN CORPUSCULAR HGB CONC 34 g/dL (33-37); MEAN CORPUSCULAR VOLUME 91.8 fL (80-94); MONOCYTES # (AUTO) 0.7 K/uL (0.8-1.0); MONOCYTES % (AUTO) 9.1 % (1.7-9.3); NEUTROPHILS # (AUTO) 4.6 K/uL (1.8-7.7); NEUTROPHILS % (AUTO) 62.4 % (42.2-75.2); PLATELET COUNT (AUTO) 331 K/uL (140-450); RED BLOOD CELL COUNT(AUTO) 4.26 MIL/uL (4.20-5.40); RED CELL DISTRIBUTION WIDTH 13.1 % (11.6-13.7); WHITE BLOOD COUNT (AUTO) 7.4 K/uL (4.8-10.8)
--- NOTE | 2021-09-08 07:33 | NUR ---
REPORT GIVEN TO SHAR BRIONES. TRANSFER OF CARE.
[2021-09-08 08:04] LABS: CARBON DIOXIDE 26.1 mmol/L (21-32); CHLORIDE 99 mmol/L (98-107); CREATININE 0.8 mg/dL (0.6-1.3); GLUCOSE 108 mg/dL (74-106); POTASSIUM 4.1 mmol/L (3.5-5.1); SODIUM SERUM 132 mmol/L (136-145); UREA NITROGEN, BLOOD 9 mg/dL (7-18)
[2021-09-08] MEDS: BLOOD GLUCOSE MONITORING 1 DEV DEV FS SCH ×2 (08:57→11:50)
[2021-09-08] MEDS ORDERED: ENOXAPARIN 40 MG/0.4 ML SYR SUBQ SCH (09:00)
[2021-09-08] MEDS ORDERED: LOSARTAN 50 MG TAB PO SCH (09:00)
[2021-09-08] MEDS ORDERED: PANTOPRAZOLE 40 MG TABEC PO SCH (09:00)
--- NOTE | 2021-09-08 09:13 | NUR ---
PT PROVIDED WITH BREAKFAST AT THIS TIME.
[2021-09-08] MEDS: carvediloL 6.25 MG TAB PO SCH (09:37)
--- NOTE | 2021-09-08 11:15 | NUR ---
PT IS AWAKE AND RESTING IN BED. RESP EVEN AND UNLABORED. NO DISTRESS NOTED.
[2021-09-08] MEDS: NACL 0.9% 1,000 ML IV SCH (11:33)
--- NOTE | 2021-09-08 11:48 | NUR ---
DC [age] YRS OLD FEMALE PATIENT WAS ADMITTED FROM HOME WITH A DX OF HYPONATREMIA NA+LEVEL ON ADMISSION 125 ADMINISTERED IVF WENT UP TO 132 . CXR SHOWED NO ACUTE CARDIOPULMONARY DISEASE. RAPID COVID TEST NEGATIVE. CONSULTED WITH NEPHROLOGY. DC PLAN TO GO HOME WHEN STABLE. CM TO FOLLOW
[2021-09-08 13:31] LABS: ANION GAP 10.9 (8-16); CARBON DIOXIDE 25.2 mmol/L (21-32); CHLORIDE 100 mmol/L (98-107); CREATININE 0.8 mg/dL (0.6-1.3); GLUCOSE 137 mg/dL (74-106); POTASSIUM 4.1 mmol/L (3.5-5.1); SODIUM SERUM 132 mmol/L (136-145); UREA NITROGEN, BLOOD 10 mg/dL (7-18)
--- NOTE | 2021-09-08 15:14 | NUR ---
URINE COLLECTED AND SENT TO LAB
--- NOTE | 2021-09-08 15:15 | NUR ---
DR WONG AT BEDSIDE. PATIENT WILL BE DC HOME . URINE AND LAB ORDERS TO BE DONE DR WONG WILL FOLLOW UP WITH RESULTS .
--- NOTE | 2021-09-08 15:45 | NUR ---
PATIENT TO DC HOME. SPOKE WITH PATIENTS MARNI GURVINDER EXPLAINED THE DC PLAN AND INSTRUCTIONS .
[2021-09-08 15:51] VITALS: BP 137/71
[2021-09-08 15:54] LABS: FREE T4 (FREE THYROXINE) 1.04 ng/dL (0.76-1.46); THYROID STIMULATING HORMONE 1.88 uIU/mL (0.34-3.74)
[2021-09-08 16:45] VITALS: BP 147/79
== END 2021-09-08 16:15 | disposition home or self-care (01) | DRG 426 ==
LOC: MED 15:33 → MMU 19:07
PROVIDERS: ADMIT Internal Medicine; ATTEND Internal Medicine
DX: E87.1 Hypo-osmolality and hyponatremia (principal); E88.09 Other disorders of plasma-protein metabolism, not elsewhere classified; I10 Essential (primary) hypertension; E11.9 Type 2 diabetes mellitus without complications; F32.A Depression, unspecified; K21.9 Gastro-esophageal reflux disease without esophagitis; Z20.822 Contact with and (suspected) exposure to COVID-19
CPT/HCPCS: 36415; 71045; 80048; 80053; 83735; 83935; 84439; 84443; 85025; 93005; 96372; 99285; J1650; Q0092

== ENCOUNTER 2022-04-14 06:55 | Day surgery (SDC) | payer OTHER ==
[~2022-04-14] VITALS: Ht 160 cm; Wt 66.2 kg
[~2022-04-14 06:55] MED LIST changes: +AMOX1TAB8 PO; +CARV3.12 PO; +HYDR25CA10 PO; -INV1I IV; +PANT40EC PO; +[UNRECOGNIZED DRUG - CODE] PO
[2022-04-14] MEDS ORDERED: LIDOCAINE 2% 100 MG/5 ML UJET TP ONE (07:56)
[2022-04-14] MEDS ORDERED: fentaNYL citrate 0.05 MG/ML VIAL ONE (07:56)
[2022-04-14] MEDS ORDERED: SIMETHICONE 40 MG/0.6 ML ONE (08:56)
[2022-04-14] MEDS ORDERED: fentaNYL citrate 0.05 MG/ML VIAL IVP ONE (13:25)
== END 2022-04-14 09:30 | disposition home or self-care (01) ==
LOC: MMU 06:55 → MOR 06:55
PROVIDERS: ATTEND Internal Medicine Gastroenterology
DX: Z12.11 Encounter for screening for malignant neoplasm of colon (principal); K57.30 Diverticulosis of large intestine without perforation or abscess without bleeding; Z80.0 Family history of malignant neoplasm of digestive organs; I10 Essential (primary) hypertension; E11.9 Type 2 diabetes mellitus without complications; E78.5 Hyperlipidemia, unspecified; K21.9 Gastro-esophageal reflux disease without esophagitis; F41.9 Anxiety disorder, unspecified; F32.A Depression, unspecified; M19.90 Unspecified osteoarthritis, unspecified site; M81.0 Age-related osteoporosis without current pathological fracture; Z79.899 Other long term (current) drug therapy; Z20.822 Contact with and (suspected) exposure to COVID-19
CPT/HCPCS: 45378; 87426; J3010

== ENCOUNTER 2023-10-20 09:36 | Emergency (ER) | payer OTHER ==
[~2023-10-20] VITALS: Ht 157.5 cm; Wt 63.5 kg
[2023-10-20 09:47] VITALS: BP 167/70; PULSE 78; RESP 22; TEMP 98.2; O2SAT 97
[2023-10-20 10:15] VITALS: O2SAT 97
[2023-10-20] MEDS: LIDOCAINE 5% 1 EA PATCH TP ONE (10:23)
[2023-10-20] MEDS: KETOROLAC 30 MG/ML VIAL IM ONE (10:24)
[2023-10-20] MEDS ORDERED: IBUP-2213 PO (11:13)
[2023-10-20] MEDS ORDERED: LIDO1ADH54 TP (11:13)
[2023-10-20] MEDS ORDERED: CYCL-711 PO (11:13)
== END 2023-10-20 11:35 | disposition home or self-care (01) ==
LOC: MED 09:36
DX: S16.1XXA Strain of muscle, fascia and tendon at neck level, initial encounter (principal); G44.86 Cervicogenic headache; E11.9 Type 2 diabetes mellitus without complications; I10 Essential (primary) hypertension; R21 Rash and other nonspecific skin eruption; L29.9 Pruritus, unspecified; Z79.899 Other long term (current) drug therapy; X58.XXXA Exposure to other specified factors, initial encounter; Y92.89 Other specified places as the place of occurrence of the external cause; Y93.89 Activity, other specified; Y99.8 Other external cause status
CPT/HCPCS: 96372; 99283; J1885; Q0163

== ENCOUNTER 2023-12-20 10:54 | Emergency (ER) | payer OTHER ==
[~2023-12-20] VITALS: Ht 157.5 cm; Wt 65.3 kg
[~2023-12-20 10:54] MED LIST changes: +CYCL-711 PO; +IBUP-2213 PO; +LIDO1ADH54 TP
[2023-12-20 11:06] VITALS: BP 160/97; PULSE 80; RESP 18; TEMP 97.2; O2SAT 96
[2023-12-20] MEDS ORDERED: IBUPROFEN 600 MG TAB ONE (13:23)
[2023-12-20] MEDS ORDERED: ACET-9882 PO (13:25)
[2023-12-20] MEDS ORDERED: BACI-418 TP (13:25)
[2023-12-20] MEDS: LIDOCAINE MPF 1% 10 MG/ML VIAL INJ ONE (13:26)
[2023-12-20] MEDS: IBUPROFEN 600 MG TAB PO ONE (13:27)
[2023-12-20 13:31] VITALS: BP 160/97; PULSE 80; RESP 18; TEMP 97.2; O2SAT 96
[2023-12-20] MEDS ORDERED: NACL 0.9% 1,000 ML IV ONE (15:00)
== END 2023-12-20 13:33 | disposition home or self-care (01) ==
LOC: MED 10:54
DX: S61.511A Laceration without foreign body of right wrist, initial encounter (principal); R03.0 Elevated blood-pressure reading, without diagnosis of hypertension; E11.9 Type 2 diabetes mellitus without complications; I10 Essential (primary) hypertension; E78.5 Hyperlipidemia, unspecified; Z79.899 Other long term (current) drug therapy; W45.8XXA Other foreign body or object entering through skin, initial encounter; Y93.89 Activity, other specified; Y92.89 Other specified places as the place of occurrence of the external cause; Y99.8 Other external cause status
CPT/HCPCS: 12002; 73110; 99283; J2003